=== PATIENT | female | born 1960 | race African-American/Black ===

== ENCOUNTER 2018-11-21 11:47 | Emergency (ER) | payer SELFPAY ==
[~2018-11-21] VITALS: Ht 157.5 cm; Wt 107.1 kg
[~2018-11-21 11:47] MED LIST: ACET500C5 PO; AMLO-218 PO; AMOX500C2 PO; FURO-110 PO; IBUP-1542 PO; LISI-524 PO; LORA10TA3 PO; LOSA50TA14 PO; METO-319 PO
[2018-11-21 11:53] VITALS: Ht 157.5 cm; Wt 107.1 kg
--- NOTE | 2018-11-21 13:11 | ERD ---
ER Documentation Chief Complaint Chief Complaint seasonal allergies, runny nose, itchy eyes x 2 weeks HPI Patient is here for 2 reasons. Patient has a history of hypertension. Has not taken hyper tension medication for the past 1 week because she ran out. Is in between doctors. She denies any chest pain, shortness of breath, blurry vision headache nausea or vomiting. No change in urine output. Asking for refill of her blood pressure medication. Patient also has had several weeks of rhinorrhea and a tickle in her throat. No fever no productive cough. Patient has been taking ibuprofen and decongestant medications. ROS All systems reviewed and are negative except as per history of present illness. Medications Home Meds Active Scripts Ibuprofen* (Motrin*) 600 Mg Tab, 600 MG PO Q8H PRN for PAIN for 5 Days, TAB Prov:JAY ENCINAS 12/24/14 Acetaminophen* (Tylophen*) 500 Mg Capsule, 1 CAP PO Q6H PRN for PAIN AND OR ELEVATED TEMP, #20 CAP Prov:JAY ENCINAS 12/24/14 Amoxicillin* (Amoxicillin*) 500 Mg Cap, 500 MG PO BID for 7 Days, CAP Prov:JAY ENCINAS 12/24/14 Amlodipine Besylate* (Norvasc*) 10 Mg Tab, 10 MG PO DAILY for 30 Days, 3 Refills Prov:RAJACK,TUCKER S. 06/30/14 Lisinopril* (Zestril*) 10 Mg Tab, 10 MG PO DAILY for 30 Days, 3 Refills Prov:RAJACK,TUCKER S. 06/30/14 Furosemide* (Lasix*) 20 Mg Tablet, 20 MG PO DAILY for 30 Days, 3 Refills Prov:RAJACK,TUCKER S. 06/30/14 Allergies Allergies: Coded Allergies: No Known Allergies (Verified Allergy, Unknown, 12/24/14) PMhx/Soc History of Surgery: No Anesthesia Reaction: No Hx Neurological Disorder: No Hx Respiratory Disorders: No Hx Cardiac Disorders: Yes (HTN) Hx Psychiatric Problems: No Hx Miscellaneous Medical Probl: No Hx Alcohol Use: No Hx Substance Use: No Hx Tobacco Use: No Smoking Status: Never smoker Physical Exam Vitals Vital Signs Date Temp Pulse Resp B/P (MAP) Pulse Ox O2 O2 Flow FiO2 Time Delivery Rate 11/21/18 97.6 79 18 240/149 100 Room Air 12:53 (179) 11/21/18 97.6 92 18 99 11:53 Physical Exam Const: No acute distress Head: Atraumatic Eyes: Normal Conjunctiva ENT: Normal External Ears, Nose and Mouth. Neck: Full range of motion. No meningismus. Resp: Clear to auscultation bilaterally Cardio: Regular rate and rhythm, no murmurs Abd: Soft, non tender, non distended. Normal bowel sounds Skin: No petechiae or rashes Back: No midline or flank tenderness Ext: No cyanosis, or edema Neur: Awake and alert Psych: Normal Mood and Affect Procedures/MDM Patient with likely allergic rhinitis. Advised patient to stop taking decongestant and ibuprofen as this can cause elevated blood pressure. Will prescribe loratadine. Strict return precautions given the infectious etiologies. Patient has a known thyroid goiter and was followed by PMD for this patient states that they recommended no surgery she does have follow-up in the next several weeks for this as well. Patient presenting HTN. Has a known history of HTN Patient endorsing compliance with medications, without evidence of end organ damage on history or exam, therefore will defer laboratory testing at this time. Will re-prescribe patient's medications Alternative diagnoses that were considered but unlikely given presentation include: toxidrome, anxiety disorder, heart failure, thyroid disorder, ACS, stroke Departure Diagnosis: Primary Impression: Hypertension Hypertension type: essential hypertension Qualified Codes: I10 - Essential (primary) hypertension Additional Impression: Seasonal allergies Condition: Stable TANIA HERNÁNDEZ MD Nov 21, 2018 13:11
[2018-11-21] MEDS ORDERED: METOPROLOL (XL) 100 MG TAB PO ONE (13:30)
[2018-11-21] MEDS ORDERED: LOSARTAN 50 MG TAB PO ONE (13:30)
[2018-11-21 13:45] VITALS: BP 169/81; PULSE 75; RESP 18
== END 2018-11-21 13:46 | disposition home or self-care (01) ==
LOC: E/R 11:47
DX: I10 Essential (primary) hypertension (principal); J30.2 Other seasonal allergic rhinitis
CPT/HCPCS: 99283

== ENCOUNTER 2018-12-12 12:26 | Emergency (ER) | payer SELFPAY ==
[~2018-12-12] VITALS: Ht 162.6 cm; Wt 108.1 kg
[~2018-12-12 12:26] MED LIST changes: -ACET500C5 PO; -AMLO-218 PO; -AMOX500C2 PO; -FURO-110 PO; -IBUP-1542 PO; -LISI-524 PO
[2018-12-12 12:35] VITALS: PULSE 78; Ht 162.6 cm; Wt 108.1 kg
[2018-12-12 14:17] VITALS: BP 225/109; RESP 20
[2018-12-12] MEDS ORDERED: NICARDipine HCL 30 MG CAPSULE PO ONE ×2 (14:30→15:30)
--- NOTE | 2018-12-12 15:17 | ERD ---
ER Documentation Chief Complaint Chief Complaint needs meds refil, ran out of meds, waiting for appt w/new pmd HPI This 57-year-old female who is here for hypertension and she needs med refills because she cannot see her doctor till December. The patient said that her blood pressure was systolic over 200 today but she is asymptomatic with no headache dizziness chest pain neurological complaints or shortness of breath. She needs refills on her 2 blood pressure meds and wants something here to lower it ROS All systems reviewed and are negative except as per history of present illness. Medications Home Meds Active Scripts Losartan Potassium* (Losartan Potassium*) 50 Mg Tablet, 50 MG PO DAILY, #30 TAB Prov:STEFANIAOSJUANCHOSTOLOS A. DO 12/12/18 Metoprolol Succinate* (Toprol XL*) 50 Mg Tab.er.24h, 100 MG PO DAILY, #30 TAB Prov:JUANCHO MCCOYSTOLOS A. DO 12/12/18 Reported Medications Losartan Potassium* (Losartan Potassium*) 50 Mg Tablet, 50 MG PO DAILY, TAB 12/12/18 Metoprolol Succinate* (Toprol XL*) 50 Mg Tab.er.24h, 50 MG PO DAILY, #30 TAB 12/12/18 Discontinued Scripts Losartan Potassium* (Losartan Potassium*) 50 Mg Tablet, 50 MG PO DAILY for 30 Days, TAB 3 Refills Prov:TANIA HERNÁNDEZ MD 11/21/18 Metoprolol Succinate* (Toprol XL*) 50 Mg Tab.er.24h, 100 MG PO DAILY, #30 TAB 3 Refills Prov:TANIA HERNÁNDEZ MD 11/21/18 Loratadine* (Loratadine*) 10 Mg Tablet, 10 MG PO DAILY, #30 TAB Prov:TANIA HERNÁNDEZ MD 11/21/18 Allergies Allergies: Coded Allergies: No Known Allergies (Verified Allergy, Unknown, 12/12/18) PMhx/Soc History of Surgery: No Anesthesia Reaction: No Hx Neurological Disorder: No Hx Respiratory Disorders: No Hx Cardiac Disorders: Yes (HTN) Hx Psychiatric Problems: No Hx Miscellaneous Medical Probl: No Hx Alcohol Use: No Hx Substance Use: No Hx Tobacco Use: No Smoking Status: Unknown if ever smoked FmHx Family History: No coronary disease Physical Exam Vitals Vital Signs Date Temp Pulse Resp B/P (MAP) Pulse Ox O2 O2 Flow FiO2 Time Delivery Rate 12/12/18 98.2 20 225/109 98 Room Air 14:17 (147) 12/12/18 97.8 78 20 261/137 97 12:35 (178) Physical Exam Const: Well-developed, well-nourished Head: Atraumatic, normocephalic Eyes: Normal Conjunctiva, PERRLA, EOMI, normal sclera, no nystagmus ENT: Normal External Ears, Nose and Mouth, moist mucus membranes. Neck: Full range of motion. No meningismus, no lymphadenopathy, enlarged thyroid with probable right cervical adenopathy. Resp: Clear to auscultation bilaterally, no wheezing, rhonchi, rales Cardio: Regular rate and rhythm, no murmurs, S1 S2 present Abd: Soft, non tender x 4, non distended. Normal bowel sounds, no guarding or rebound, no pulsitile abdominal masses or bruits Skin: No petechiae or rashes, no ecchymosis , no maculopapular rash Back: No midline or flank tenderness Ext: No cyanosis, or edema, FROM x 4, normal inspection, neurovascularly intact x 4 Neur: Awake and alert, STR 5/5 x 4, sensation intact x 4, no focal findings, cerebellum intact Psych: Normal Mood and Affect Results 24 hrs Current Medications Medications Dose Sig/César Start Time Status Last (Trade) Ordered Route PRN Stop Time Admin Dose Reason Admin Nicardipine 30 mg ONCE ONCE 12/12/18 DC 12/12/18 HCl PO 14:30 14:35 (Cardene) 12/12/18 14:31 Nicardipine 30 mg ONCE ONCE 12/12/18 HCl PO 15:30 (Cardene) 12/12/18 15:31 Procedures/MDM I inquired about her neck in the patient says that her doctor is currently doing a work-up to rule out thyroid cancer/thyroid pathology She received 2 doses of Cardene and her blood pressure is better, will discharge home on her metoprolol and losartan Departure Diagnosis: Primary Impression: Hypertension Hypertension type: essential hypertension Qualified Codes: I10 - Essential (primary) hypertension Condition: Stable Patient Instructions: High Blood Pressure (Hypertension) Referrals: NO PRIMARY,CARE PHYSICIAN (PCP) AMBROSIO MCCOY DO Dec 12, 2018 15:17
== END 2018-12-12 15:29 | disposition home or self-care (01) ==
LOC: E/R 12:26
DX: Z76.0 Encounter for issue of repeat prescription (principal); I10 Essential (primary) hypertension
CPT/HCPCS: 99281